=== PATIENT | female | born 1940 | race Caucasian/White ===

== ENCOUNTER 2017-04-25 12:40 | Emergency (ER) | payer OTHER ==
[~2017-04-25] VITALS: Ht 157.5 cm; Wt 62.6 kg
[~2017-04-25 12:40] MED LIST: COZAAR100 MG; HUMALOG100 U/ML; LANTUS100 U/ML; LISINOPRIL10 MG; MACRODANTIN100 M1 PO; SEROQUEL200 MG; SYNTHROID75 MCG
== END 2017-04-25 15:34 | disposition home or self-care (01) ==
LOC: ER 12:40
DX: S60.221A Contusion of right hand, initial encounter (principal); W18.09XA Striking against other object with subsequent fall, initial encounter; Y93.89 Activity, other specified; Y92.018 Other place in single-family (private) house as the place of occurrence of the external cause; Y99.8 Other external cause status